=== PATIENT | female | born 1955 | race Caucasian/White ===

== ENCOUNTER → 2023-09-21 12:38 | Outpatient (CLI) | payer MEDICARE, MEDICAID, SELFPAY ==
--- NOTE | 2023-09-21 12:45 | DI.CT.S_ITS ---
PROCEDURE: CT SINUS SCREEN WO CON INDICATIONS: Chronic pansinusitis TECHNIQUE: Noncontrast 3.0 mm axial images acquired from the frontal sinuses to the mid-sella, with coronal and sagittal reformats. For radiation dose reduction, the following was used: automated exposure control, adjustment of mA and/or kV according to patient size. COMPARISON: None. FINDINGS: Image quality: Excellent. Maxillary Sinuses: The superior medial rollins of the maxillary sinuses have been removed. Sinuses are clear. Ethmoid Air Cells: No bony remodeling or destruction. Sinuses are clear. Sphenoid Sinuses: No bony remodeling or destruction. Sinuses are clear. Frontal Sinuses: No bony remodeling or destruction. Sinuses are clear. The frontal sinuses are relatively poorly developed. Ostiomeatal Complexes: Removed. Miscellaneous: Visualized intra-orbital contents are normal. No silvestre bullosa or paradoxical turbinate curvature. There is a mild degree of leftward nasal septal deviation. There is extensive cervical spine fixation hardware seen posteriorly on the yield analyst image. IMPRESSION: No significant active paranasal sinus disease can be seen. Prior postoperative change, with bilateral antrectomy. Dictated by: Kal Slaughter M.D. on 09/21/2023 at 12:49 Approved by: Kal Slaughter M.D. on 09/21/2023 at 12:50
== END ==
LOC: CT 12:43
PROVIDERS: Referring Provider Otolaryngology; Visit Provider Otolaryngology
DX: J32.4 Chronic pansinusitis (principal); J34.89 Other specified disorders of nose and nasal sinuses; R51.9 Headache, unspecified; J34.2 Deviated nasal septum
CPT/HCPCS: 70486